=== PATIENT | female | born 1985 | race Hispanic/Latino ===

== ENCOUNTER 2017-01-30 05:39 | Inpatient (IN) | payer OTHER ==
[2017-01-30] VITALS (7 sets, daily range): BP systolic 103–145; BP diastolic 51–65
[~2017-01-30] VITALS: Ht 152.4 cm; Wt 115.0 kg
[~2017-01-30 05:39] MED LIST: ACET50TA PO; PRENTAB43 PO; VITAPRTA PO
[2017-01-30] MEDS ORDERED: LR 1,000 ML IV SCH ×2 (05:45→09:45)
[2017-01-30] MEDS ORDERED: BICITRA 30ML SOLN UDC PO ONE (05:45)
[2017-01-30 06:22] LABS: MEAN CORPUSCULAR HEMOGLOBIN 25.5 pg (27.0-33.0); MEAN CORPUSCULAR HGB CONC 32.8 g/dl (32.0-36.5); MEAN CORPUSCULAR VOLUME 77.6 fl (80.0-96.0); RED CELL DISTRIBUTION WIDTH 16.8 % (11.5-14.5); WHITE BLOOD COUNT 8.6 K/mm3 (4.0-10.0)
[2017-01-30] MEDS ORDERED: MORPHINE PRES-FREE INJ 10 MG/10 ML VIAL (J2274) As Ordered ONE (07:17)
[2017-01-30] MEDS ORDERED: OXYTOCIN INJ 10 UNITS/ML VIAL (J2590) As Ordered ONE (07:18)
[2017-01-30] MEDS ORDERED: NALBUPHINE HCL 10 MG/ML AMP (J2300) IV PRN (07:38)
[2017-01-30] MEDS ORDERED: METOCLOPRAMIDE INJ 10MG/2ML VIAL (J2765) IV PRN ×2 (07:38→09:45)
[2017-01-30] MEDS ORDERED: NALOXONE INJ 0.4 MG/1 ML VIAL (J2310) IV PRN ×2 (07:38)
[2017-01-30] MEDS ORDERED: ONDANSETRON 4MG/2ML VIAL (J2405) IV PRN ×3 (07:38→09:45)
[2017-01-30] MEDS ORDERED: ONDANSETRON 4MG/2ML VIAL (J2405) As Ordered ONE (07:55)
[2017-01-30] MEDS ORDERED: ePHEDrine SULFATE 25 MG/5 ML(5MG/ML) SYRINGE As Ordered ONE (07:55)
[2017-01-30] MEDS ORDERED: KETOROLAC 30 MG/ML VIAL (J1885) IV SCH (08:00)
[2017-01-30] MEDS ORDERED: KETOROLAC 60 MG/2 ML VIAL (J1885) As Ordered ONE (08:17)
[2017-01-30] MEDS: LR 1,000 ML IV SCH ×2 (08:37→14:38)
[2017-01-30] MEDS ORDERED: RHOGAM 300 MCG (1500 IU) INJ (J2790) IM SCH (08:45)
[2017-01-30] MEDS ORDERED: PROMETHAZINE 25 MG TAB PO PRN (08:45)
[2017-01-30] MEDS ORDERED: METHYLERGONOVINE MALEATE 0.2 MG/ML VIAL (J2210) IM PRN (08:45)
[2017-01-30] MEDS ORDERED: MEASLES,MUMPS,RUBELLA VACCINE INJ (MMR-II) (90707) SC SCH (08:45)
[2017-01-30] MEDS ORDERED: PERCOCET 5MG/325MG TAB PO PRN ×2 (08:45→09:45)
[2017-01-30] MEDS: PRENATAL VITAMIN TAB PO SCH (09:00)
[2017-01-30] MEDS: DOCUSATE SODIUM 100 MG CAP PO SCH ×2 (09:00→20:45)
[2017-01-30] MEDS ORDERED: fentaNYL 100 MCG/2 ML INJECTION (J3010) IV PRN (09:45)
[2017-01-30] MEDS: KETOROLAC 30 MG/ML VIAL (J1885) IV SCH ×2 (14:38→20:47)
[2017-01-30] MEDS ORDERED: LACTATED RINGER'S 1000 ML IV ONE (17:00)
[2017-01-31] MEDS: LR 1,000 ML IV SCH (02:11)
[2017-01-31] MEDS: KETOROLAC 30 MG/ML VIAL (J1885) IV SCH ×2 (02:12→08:21)
[2017-01-31] MEDS: PERCOCET 5MG/325MG TAB PO PRN ×2 (05:39→22:42)
[2017-01-31 06:56] VITALS: BP 110/50
[2017-01-31 07:00] LABS: MEAN CORPUSCULAR HEMOGLOBIN 24.4 pg (27.0-33.0); MEAN CORPUSCULAR HGB CONC 30.5 g/dl (32.0-36.5); MEAN CORPUSCULAR VOLUME 79.9 fl (80.0-96.0); WHITE BLOOD COUNT 7.7 K/mm3 (4.0-10.0)
[2017-01-31] MEDS: DOCUSATE SODIUM 100 MG CAP PO SCH ×2 (08:21→22:41)
[2017-01-31] MEDS: PRENATAL VITAMIN TAB PO SCH (08:21)
[2017-01-31 10:00] VITALS: BP 114/53
[2017-01-31] MEDS ORDERED: IBUPROFEN 800 MG TAB PO SCH (10:00)
[2017-01-31 15:00] VITALS: BP 118/58
--- NOTE | 2017-01-31 15:08 | IPN ---
DATE: 01/31/2017 This lady is a 31-year-old, 4, now para 4, who had an elective repeat section and bilateral tubal ligation who delivered a female, 9 pounds 8 ounces, of 9 and 9 at one and five minutes respectively. On her first day and postoperative day, she is normocephalic, atraumatic. Neck full range of motion. Pupils equal and reactive to light. Distal pulses symmetric. No evidence of deep vein thrombosis (DVT), pulmonary embolism (PE) or superficial phlebitis. Chest is clear bilaterally to the bases. No wheezes or rhonchi. Abdomen soft. Uterus is 2 below. Bowel sounds are present. Incision is clean and dry. She has no rashes, lesions or pruritus. No arthralgia or myalgia. No complaints of cough, wheezes, shortness of breath or dyspnea on exertion. No chest pain. No bleeding. She is neurologic complete. Dubon catheter is removed and she is voiding well. No nausea, vomiting, diarrhea or constipation. No diabetic issues. She does not smoke, drink or abuse drugs. She is . There is no domestic violence. On postoperative day one, we discussed phlebitis, cystitis, mastitis, endometritis and cellulitis; diet, excise and pain management; perineal breast and wound care. Medications will be given at discharge. Her blood pressure today is 110/50, respirations 16, pulse 70 and temperature 97.4. Her admitting hemoglobin was 11.0, hematocrit 33.4 and platelets were 187. Postoperative day #1, her hemoglobin is 8, hematocrit 26.3 and platelets are 130. In summary, we have a repeat section with tubal ligation, doing well, breast-feeding is going well, and plans on discharge tomorrow.
[2017-01-31] MEDS: IBUPROFEN 800 MG TAB PO SCH (16:13)
[2017-01-31 18:00] VITALS: BP 106/58
[2017-01-31 22:31] VITALS: BP 124/63
[2017-02-01] MEDS: IBUPROFEN 800 MG TAB PO SCH ×2 (00:23→08:00)
[2017-02-01] MEDS: PERCOCET 5MG/325MG TAB PO PRN (03:08)
[2017-02-01 06:29] VITALS: BP 121/56
[2017-02-01] MEDS: DOCUSATE SODIUM 100 MG CAP PO SCH (07:59)
[2017-02-01] MEDS: PRENATAL VITAMIN TAB PO SCH (07:59)
--- NOTE | 2017-02-01 11:01 | IPNPDOC ---
Text Note Date of Service The patient was seen on 02/01/17. NOTE Post-Op Day 2 Chrissy is a 31yo [id number] doing well on post-op day 2 s/p uncomplicated RLTCS with BTL at 39w0d. She is . Lochia normal, spontaneously voiding and ambulating without difficulty. Tolerating regular diet. Denies f/c/n /v/SOB/CP/MENDEZ/abdominal pain. Vitals wnl, afebrile Exam: General: WDWN, NAD, resting comfortably Cardiac: S1S2 present, no murmur Lungs: CTAB without wheeze/crackles Abdomen: obese, soft, NTTP, fundus firm u-2cm, pfannensteil with no surrounding erythema, no drainage Extremities: no tenderness of calves bilaterally, SCDs on and functioning Labs: pre-op H/H 11/33.4, post-op H/H /26.3 Assessment: Chrissy is a 31yo [id number] doing well on post-op day 2 s/p uncomplicated RLTCS with BTL at 39w0d. Vitals wnl, benign exam. No e/o infection , hemodynamically stable. Plan: -routine post-op/post- care -infant not ready for discharge given weight loss, so will keep patient one more day -Regular diet -motrin/percocet prn pain -Encourage ambulation and and use of IS Dr. Trice Castillo MD [place] VS,[place], I+O VSTiburcioe, I+O Vital Signs Date Time Temp Pulse Resp B/P (MAP) Pulse Ox O2 Delivery O2 Flow Rate FiO2 02/01/17 06:29 97.2 73 18 121/56 (77) 02/01/17 03:42 Room Air 01/31/17 18:00 99 I&O- Last 24 Hours up to 6 AM 02/01/17 06:00 Intake Total 875 ml Output Total 500 ml Balance 375 ml TRICE CASTILLO MD Feb 01, 2017 11:01
[2017-02-01] MEDS ORDERED: COLA100C3 PO (11:41)
[2017-02-01] MEDS ORDERED: IBUP-1114 PO (11:42)
[2017-02-01] MEDS ORDERED: OXYC1TAB23 PO (11:42)
--- NOTE | 2017-02-01 11:49 | DS.PDOC ---
Discharge Summary General Date of Admission Jan 30, 2017 at 05:39 Date of Discharge Feb 01, 2017 Attending Physician: HAY CASTILLO MD Discharge Summary PROCEDURES PERFORMED DURING STAY: Repeat low transverse section with bilateral tubal ligation ADMITTING DIAGNOSES: 1. Term gestation with history of prior section 2. Satisfied parity DISCHARGE DIAGNOSES: 1. Term gestation with history of prior section 2. Satisfied parity status post bilateral tubal ligation 2. Delivered COMPLICATIONS/CHIEF COMPLAINT: Malpresentation, History Of Prior Section. HISTORY OF PRESENT ILLNESS/HOSPITAL COURSE: Chrissy is a 31 year old [id number] doing well on post-operative day 2 status post uncomplicated Rrepeat low transverse section with bilateral tubal ligation at 39w0d. Benign /post-operative course and at time of discharge vitals normal, benign exam. No evidence of infection, hemodynamically stable. DISCHARGE MEDICATIONS: percocet/motrin/colace ALLERGIES: Please see below. PHYSICAL EXAMINATION ON DISCHARGE: Vitals wnl, afebrile Exam: General: WDWN, NAD, resting comfortably Cardiac: S1S2 present, no murmur Lungs: CTAB without wheeze/crackles Abdomen: obese, soft, NTTP, fundus firm u-2cm, pfannensteil with no surrounding erythema, no drainage Extremities: no tenderness of calves bilaterally, SCDs on and functioning LABORATORY DATA: pre-op H/H 11/33.4, post-op H/H /.3 ACTIVITY: As tolerated, vaginal rest DIET: regular DISCHARGE PLAN: Discharge to home Clinic visit for incision check in 2 weeks then routine in 6 weeks Return sooner for fevers/chills/abdominal pain/evidence of infection of wound or breast or increasing pain despite medications DISPOSITION: home DISCHARGE INSTRUCTIONS: Keep incision clean and dry Vaginal rest for 6 weeks No heavy lifting greater than weight of baby for 6 weeks DISCHARGE CONDITION: Stable TIME SPENT ON DISCHARGE: Greater than [address] Hay Castillo MD [facility] Vital Signs/I&Os Vital Signs Date Time Temp Pulse Resp B/P (MAP) Pulse Ox O2 Delivery O2 Flow Rate FiO2 02/01/17 06:29 97.2 73 18 121/56 (77) 02/01/17 03:42 Room Air 01/31/17 18:00 99 I&O- Last 24 Hours up to 6 AM 02/01/17 06:00 Intake Total 875 ml Output Total 500 ml Balance 375 ml Discharge Medications Scheduled Multivit/Min/Pren/Fol Ac/Iron ( Rx) 1 Tab Tab, 1 TAB PO DAILY for NUTRITIONAL SUPPORT, (Reported) Allergies Coded Allergies: No Known Allergies (Unverified , 02/19/14) HAY CASTILLO MD Feb 01, 2017 11:49
--- NOTE | 2017-02-10 07:11 | RO ---
DATE OF PROCEDURE: 01/30/2017 PREOPERATIVE DIAGNOSES: 1. Intrauterine at 39 weeks estimated gestational age. 2. Malpresentation. 3. History of prior low transverse section. POSTOPERATIVE DIAGNOSES: PROCEDURE: Repeat low transverse section. SURGEON: Tanna Mccrary MD PAPER CAP MACHINE OPERATOR: Joselo Jarrett MD ANESTHESIA: ESTIMATED BLOOD LOSS (EBL): 600. INTRAVENOUS (IV) FLUIDS: 1100 mL. URINE OUTPUT: 125 mL. FINDINGS: Viable female infant. score 9 and 9. Weight 4314 grams (9 pounds 8 ounces). Normal uterus, tubes and ovaries bilaterally. ANTIBIOTICS: Ancef 2 grams IV times one prior to skin incision. COMPLICATIONS: None. SPECIMENS: None. INDICATION: The patient is a 31-year-old with a history of a prior low transverse section. The patient of note has a fetus in verónica breech position. The decision was made to proceed with a repeat low transverse section. DESCRIPTION OF PROCEDURE: The risks, benefits, indications and alternatives of the procedure were reviewed. Informed consent was obtained. The patient was taken to the operating room where spinal anesthesia was obtained without difficulty. She was then prepped and draped in a normal sterile fashion in the dorsal supine position with a leftward tilt. A Pfannenstiel skin incision was then made with the scalpel and carried through the underlying layer of fascia. The fascia was then incised in the midline and the incision was extended laterally with Otoole scissors. Superior aspect of the fascial incision was grasped with Sushma clamps, elevated and the underlying rectus muscles dissected off aided with Otoole scissors. Attention was then turned to the inferior aspect of the incision, which in a similar fashion, was then grasped, tented up with the Sushma clamps and the rectus muscles dissected off with Otoole scissors. Rectus muscles were then in the midline. The peritoneum was identified and entered digitally. The peritoneal incision was then extended horizontally with good visualization of the bladder. The bladder blade was then inserted. The vesicouterine peritoneum was then identified, entered sharply with Metzenbaum scissors. This incision was then extended laterally and the bladder blade created digitally. The bladder blade was then reinserted. Next, the lower uterine segment was incised in a transverse fashion with the scalpel. The uterine incision was then extended manually. The amniotic sac was artificially ruptured, productive of clear fluid. The infant was found to be in verónica breech presentation. Legs and sacrum was then grasped and brought through to the level of the hysterotomy. Pinard's maneuver was then used atraumatically with delivery of the legs in the hysterotomy. Blue towel was placed around the sacrum and legs as maneuver was then performed to the level of the scapula. The arms were delivered through Pinard's maneuver followed by the head using Pridwnado-Fhujloi-Maxl maneuver. The nose and mouth were suctioned with a bulb syringe and the cord doubly clamped and cut. The was handed off to the awaiting rn residential. Placenta was then removed spontaneously with gentle traction on the umbilical cord. The uterus was then exteriorized and cleared of all clots and debris. The uterine incision was then repaired with #0 Vicryl in a running locked fashion. A second layer of #0 Vicryl was then used to imbricate the hysterotomy. The posterior cul-de-sac was then irrigated. The uterus was then returned to the abdomen and the hysterotomy was again noted to be hemostatic. The pericolic gutters were then irrigated and cleared of all clots and debris. The fascia was then reapproximated with #0 Vicryl in a running fashion. The subcutaneous layer was then closed with #3-0 Vicryl in a running fashion. The skin was then closed with #3-0 Monopril on a Jaron needle in a subcuticular fashion. The incision was then dressed with Steri-Strips and a pressure dressing applied. At the completion of the case, bimanual exam was performed with good uterine tone and minimal vaginal bleeding. The patient tolerated the procedure well. Sponge, lap and needle counts were correct times three. The patient was taken to the recovery room in stable condition.
== END 2017-02-01 13:30 | disposition home or self-care (01) | DRG 766 ==
LOC: M LDI 05:39 → M OBS 10:11
PROVIDERS: ADMIT Obstetrics & Gynecology; ATTEND Obstetrics & Gynecology
PROC: 0UB70ZZ Excision of Bilateral Fallopian Tubes, Open Approach (ICD-10-PCS; 2017-01-30)
PROC: 10D00Z1 Extraction of Products of Conception, Low, Open Approach (ICD-10-PCS; principal; 2017-01-30 07:30)
DX: O34.211 Maternal care for low transverse scar from previous cesarean delivery (principal); Z37.0 Single live birth; Z3A.39 39 weeks gestation of pregnancy; O32.1XX0 Maternal care for breech presentation, not applicable or unspecified; Z30.2 Encounter for sterilization

== ENCOUNTER → 2017-11-25 | Outpatient (REF) | payer OTHER | LOC: M SFHCLERA 19:05 | DX: R30.0 Dysuria (principal) ==